=== PATIENT | female | born 1975 | race Caucasian/White ===

== ENCOUNTER 2019-01-24 10:57 | Emergency (ER) | payer MEDICAID ==
[2019-01-24] MEDS: DEXAMETHASONE 10 MG/ML 1 ML INJ IM (11:59)
[2019-01-24] MEDS: DIAZEPAM 5 MG TAB PO (11:59)
[2019-01-24] MEDS: KETOROLAC 60 MG INJ IM (11:59)
== END 2019-01-24 13:40 | disposition home or self-care (01) ==
LOC: FTE 10:57
DX: M54.5 Low back pain (principal); M79.601 Pain in right arm; M79.10 Myalgia, unspecified site
CPT/HCPCS: 72100; 73060-RT; 73080-RT; 81025; 96372; 99284-25